=== PATIENT | female | born 1965 | race African-American/Black ===

== ENCOUNTER 2016-07-29 21:11 | Inpatient (IN) | payer MEDICARE, MEDICAID ==
[~2016-07-29] VITALS: Ht 160 cm; Wt 150.3 kg
[~2016-07-29 21:11] MED LIST: ALLO100T PO; ATOR10TA PO; Aspirin PO; BUDE10.2 IH; CETI10TA22 PO; Doxycycline Hyclate PO; FLUT1DIS3 INH; INSU100C4 SQ; INSU100I13 SQ; LOSA50TA6 PO; METO25TA9 PO; METO5TAB4 PO; NIFE30TA7 PO; PANT40TA3 PO; PROAIR HFA8.5 GM IH
[2016-07-29 21:55] LABS: CALCIUM 8.8 mg/dL (8.5-10.1); CREATININE 4.2 mg/dL (0.6-1.0); GFR 13.4
[2016-07-29 21:57] LABS: BASO % 1 % (0-3); EOS % 3 % (0-3); HEMATOCRIT 26.7 % (36.0-47.0); HEMOGLOBIN 8.5 g/dL (12.0-15.5); LYMPH # 0.6 x10^3/uL (1.0-4.8); LYMPH % 10 % (24-48); MEAN CORPUSCULAR HEMOGLOBIN 28 pg (25-35); MEAN CORPUSCULAR HGB CONC 32 g/dL (31-37); MEAN CORPUSCULAR VOLUME 88 fL (79-100); MONO % 7 % (0-9); NEUT % 79 % (31-73); PLATELET COUNT 258 x10^3/uL (140-400); RED BLOOD COUNT 3.05 x10^6/uL (3.50-5.40); RED CELL DISTRIBUTION WIDTH 20.5 % (11.5-14.5); WHITE BLOOD COUNT 5.8 x10^3/uL (4.0-11.0)
[2016-07-29 21:59] LABS: POTASSIUM ISTAT 3.9 mmol/L (3.5-5.0)
--- NOTE | 2016-07-29 21:59 | ED.ADGEN ---
Past Medical History Past Medical History: Arthritis, Asthma, CHF, COPD, Diabetes-Type II, GERD, Hypertension, Renal Disease, Renal Failure Additional Past Medical Histor: obesity Past Surgical History: , Knee Replacement, Other Additional Past Surgical Histo: (R) ARM SHUNT, (R) KNEE RPL, EYE Alcohol Use: None Drug Use: None Adult General Chief Complaint Chief Complaint: HEADACHE HPI HPI Patient is a 51 year old woman, history of end-stage renal disease on hemodialysis, who has missed her last 2 dialysis sessions, CHF, hypertension, hyperlipidemia, morbid obesity, who presents to the emergency department with complaint of headache, shortness of breath, and swelling. Patient states that she did not have a ride to get the dialysis on today, did her last full dialysis session was last , 6 days ago. She states that she is having a headache located throughout her head, which is throbbing in nature, denies any vision changes, any weakness emesis or tingling, no chest pain, complaining of shortness of breath and dyspnea with exertion, she does wear 3 L of oxygen at baseline. Swelling is bilateral in her legs, consistent with previous episodes of fluid overload, non-productive cough. No recent travel or surgery, history of DVT or PE, patient states she's been compliant all other medications. 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 Review of Systems Review of Systems Constitutional: Denies fever or chills. [] Eyes: Denies change in visual acuity. [] HENT: Denies nasal congestion or sore throat. [] Respiratory: Cough, dyspnea on exertion. [] Cardiovascular: Denies chest pain, complaining of edema GI: Denies abdominal pain, nausea, vomiting, bloody stools or diarrhea. [] : Denies dysuria. [] Musculoskeletal: Denies back pain or joint pain. [] Integument: Denies rash. [] Neurologic: Denies focal weakness or sensory changes. Complaining of throbbing headache. Endocrine: Denies polyuria or polydipsia. [] Lymphatic: Denies swollen glands. [] Psychiatric: Denies depression or anxiety. [] Allergies Allergies Allergies Coded Allergies Type Severity Reaction Last Updated Verified Penicillins Allergy Intermediate 05/16/15 Yes Iodinated Contrast Media - Oral and Adverse Reaction Intermediate Nausea and Vomiting 05/12/15 Yes prednisone Adverse Reaction Intermediate "Tastes Bad" 05/12/15 Yes Physical Exam Physical Exam Constitutional: Well developed, well nourished, no acute distress, non-toxic appearance. [] HENT: Normocephalic, atraumatic, bilateral external ears normal, oropharynx moist, no oral exudates, nose normal. [] Eyes: PERRLA, EOMI, conjunctiva normal, no discharge. [] Neck: Normal range of motion, no tenderness, supple, no stridor. [] Cardiovascular:Heart rate regular rhythm, no murmur [] Lungs & Thorax: Bilateral breath sounds clear to auscultation [] Abdomen: Bowel sounds normal, soft, no tenderness, no masses, no pulsatile masses. [] Skin: Warm, dry, no erythema, no rash. [] Back: No tenderness, no CVA tenderness. [] Extremities: No tenderness, no cyanosis, no clubbing, ROM intact, no edema. [] Neurologic: Alert and oriented X 3, normal motor function, normal sensory function, no focal deficits noted. [] Psychologic: Affect normal, judgement normal, mood normal. [] Current Patient Data Vital Signs Vital Signs Date Time Temp Pulse Resp B/P Pulse Ox O2 Delivery O2 Flow Rate FiO2 07/29/16 21:24 97.8 85 20 190/91 98 Nasal Cannula 3 97.8 Lab Values Laboratory Tests Test 07/29/16 21:30 07/29/16 21:43 White Blood Count 5.8x10^3/uL (4.0-11.0) Red Blood Count 3.05x10^6/uL (3.50-5.40) L Hemoglobin 8.5g/dL (12.0-15.5) L Hematocrit 26.7% (36.0-47.0) L Mean Corpuscular Volume 88fL (79-100) Mean Corpuscular Hemoglobin 28pg (25-35) Mean Corpuscular Hemoglobin Concent 32g/dL (31-37) Red Cell Distribution Width 20.5% (11.5-14.5) H Platelet Count 258x10^3/uL (140-400) Neutrophils (%) (Auto) 79% (31-73) H Lymphocytes (%) (Auto) 10% (24-48) L Monocytes (%) (Auto) 7% (0-9) Eosinophils (%) (Auto) 3% (0-3) Basophils (%) (Auto) 1% (0-3) Neutrophils # (Auto) 4.6x10^3uL (1.8-7.7) Lymphocytes # (Auto) 0.6x10^3/uL (1.0-4.8) L Monocytes # (Auto) 0.4x10^3/uL (0.0-1.1) Eosinophils # (Auto) 0.2x10^3/uL (0.0-0.7) Basophils # (Auto) 0.0x10^3/uL (0.0-0.2) Platelet Estimate Pending Sodium Level 138mmol/L (136-145) Potassium Level 4.0mmol/L (3.5-5.1) Chloride Level 101mmol/L (98-107) Carbon Dioxide Level 29mmol/L (21-32) Anion Gap 8 (6-14) 20mmol/L (6-14) H Blood Urea Nitrogen 44mg/dL (7-20) H Creatinine 4.2mg/dL (0.6-1.0) H Estimated GFR (Cockcroft-Gault) 13.4 BUN/Creatinine Ratio 10 (6-20) Glucose Level 128mg/dL (70-99) H 128mg/dL (70-99) H Calcium Level 8.8mg/dL (8.5-10.1) Total Bilirubin 1.3mg/dL (0.2-1.0) H Aspartate Amino Transferase (AST) 32U/L (15-37) Alanine Aminotransferase (ALT) 24U/L (14-59) Alkaline Phosphatase 371U/L (46-116) H Troponin I Quantitative 0.019ng/mL (0.000-0.055) Total Protein 9.7g/dL (6.4-8.2) H Albumin 2.8g/dL (3.4-5.0) L Albumin/Globulin Ratio 0.4 (1.0-1.7) L POC Hemoglobin 9.9g/dL (12-15) L POC Hematocrit 29% (36-40) L POC Sodium 141mmol/L (135-145) POC Potassium 3.9mmol/L (3.5-5.0) POC Chloride 100mmol/L (98-110) POC Total CO2 26mmol/L (23-32) POC Blood Urea Nitrogen 41mg/dL (8-26) H POC Creatinine 4.2mg/dL (0.5-1.4) H POC Ionized Calcium (Trista) 1.08mmol/L (1.13-1.32) L Laboratory Tests 07/29/16 21:30 Laboratory Tests 07/29/16 21:30 07/29/16 21:43 EKG EKG EC: Sinus rhythm, heart rate 86 beat/minute, upright axis, QTC of 458, TN of 262, QRS is 68, mild baseline artifact noted, with low limb lead voltage, no ST elevations or depressions, abnormal ECG, does not meet STEMI criteria. As interpreted by me. [] Radiology/Procedures Radiology/Procedures [] [facility] [address] [place] [address] IMAGING REPORT Signed PATIENT: RODRIGO FONSECA ACCOUNT: [id number] : 1965 LOCATION: [address] [place] [address] AGE: 51 SEX: F EXAM STATUS: ADM IN ORD. PHYSICIAN: DEXTER BABB DO REASON: RAM/HTN/Missed HD PROCEDURE: HEAD WO CONTRAST PROCEDURE CT scan of the head without contrast 07/29/2016 HISTORY Severe headache since earlier today. TECHNIQUE Unenhanced contiguous, 5 millimeter axial sections were obtained through the head. One or more of the following individualized dose reduction techniques were utilized for this study: 1. Automated exposure control. 2. Adjustment of the mA and/or kV according to patient size. 3. Use of iterative reconstruction technique. FINDINGS Comparison study is dated 03/03/2015. There is generalized parenchymal atrophy. No acute parenchymal abnormality is seen. No extra-axial fluid collection is noted. No skull fracture is seen. IMPRESSION No acute intracranial abnormality is seen. Electronically signed by: Zaheer Post MD (Jul 29, 2016 23:13:15) DICTATED and SIGNED BY: ZAHEER POST MD DATE: 07/29/16 3071 CC: DEXTER BABB DO; YANA BURT MD ~ Chest x-ray: One view: Cardiac silhouette is enlarged, patient with cephalization noted, no bony or soft tissue normalities identified, no pneumothorax, no effusions or infiltrates. As interpreted by me. Course & Med Decision Making Course & Med Decision Making Pertinent Labs and Imaging studies reviewed. (See chart for details) Patient's examination is consistent with congestive heart failure, oxygen saturation is the mid 90s on 2-1/2 L of nasal cannula oxygen, patient does get dyspneic with activity, but is comfortable at rest. Due to complaints of headache, CT of the head obtained to rule out any occult intracranial normality , as patient is higher risk with her history of dialysis. CT of the head is unremarkable, chest x-ray reveals mild cephalization, cardiomegaly, laboratory studies reveal a creatinine of 4.2, with a BU and of 44, electrolytes otherwise are within normal limits, all above discussed with Dr. Rico of nephrology, no indication for emergent dialysis tonight, however based on patient's 6 days without dialysis, and evidence of significant fluid overload, with dyspnea on exertion, recommends patient will be admitted to the hospital for dialysis performed in the morning, with monitoring overnight. Findings as above discussed with Dr. Pritchard of internal medicine, as a full admission to the medical telemetry floor, bridge orders entered with labs for the morning, when necessary Tylenol and fentanyl, respiratory therapy treatments, we'll continue oxygen therapy, and cardiac monitoring as stated. Repeat blood pressures were low bowel, order obtained from Dr. Pritchard for labetalol to be administered when necessary. Consultation placed for Dr. Arora. Patient remained stable in the ED, more comfortable after receiving Tylenol for her headache, transported to the floor without issue. Dragon Disclaimer Dragon Disclaimer This electronic medical record was generated, in whole or in part, using a voice recognition dictation system. Departure Impression: Primary Impression: CHF (congestive heart failure) Additional Impressions: Shortness of breath HTN (hypertension) End stage renal disease Medical non-compliance Disposition: ADMITTED INPATIENT Admitting Physician: Ivory Pritchard Condition: IMPROVED Problem Qualifiers Primary Impression: CHF (congestive heart failure) Congestive heart failure type: unspecified congestive heart failure type Congestive heart failure chronicity: unspecified congestive heart failure chronicity Qualified Code: I50.9 - Heart failure, unspecified Additional Impressions: HTN (hypertension) Hypertension type: essential hypertension Qualified Code: I10 - Essential ( primary) hypertension DEXTER BABB DO Jul 29, 2016 21:59
[2016-07-29 22:07] LABS: ALBUMIN 2.8 g/dL (3.4-5.0); ALBUMIN/GLOBULIN RATIO 0.4 (1.0-1.7); TOTAL BILIRUBIN 1.3 mg/dL (0.2-1.0); TOTAL PROTEIN 9.7 g/dL (6.4-8.2)
[2016-07-29] MEDS ORDERED: FENTANYL PF 100 MCG/2 ML VIAL. IV PRN (22:15)
[2016-07-29] MEDS ORDERED: ACETAMINOPHEN 325 MG TABLET. PO PRN (22:30)
[2016-07-29] MEDS ORDERED: ACETAMINOPHEN 325 MG TABLET. PO ONE (22:30)
[2016-07-29] MEDS ORDERED: NITROGLYCERIN SUBLINGUAL 0.4 MG BOTTLE OF 25. SL PRN (22:30)
[2016-07-29] MEDS ORDERED: DEXTROSE 50% 25 GM / 50ML DISP.SYRIN. IV PRN (22:30)
--- NOTE | 2016-07-29 23:15 | RAD ---
PROCEDURE CT scan of the head without contrast 07/29/2016 HISTORY Severe headache since earlier today. TECHNIQUE Unenhanced contiguous, 5 millimeter axial sections were obtained through the head. One or more of the following individualized dose reduction techniques were utilized for this study: 1. Automated exposure control. 2. Adjustment of the mA and/or kV according to patient size. 3. Use of iterative reconstruction technique. FINDINGS Comparison study is dated 03/03/2015. There is generalized parenchymal atrophy. No acute parenchymal abnormality is seen. No extra-axial fluid collection is noted. No skull fracture is seen. IMPRESSION No acute intracranial abnormality is seen. Electronically signed by: Zaheer Post MD (Jul 29, 2016 23:13:15)
[2016-07-29] MEDS ORDERED: LABETALOL 20 MG/4 ML DISP.SYRIN. IVP PRN (23:45)
[2016-07-30] MEDS ORDERED: INSU100V8 SQ (01:16)
[2016-07-30] MEDS ORDERED: BUDE10.2 IH (01:16)
[2016-07-30] MEDS ORDERED: FOLI0.8T3 PO (01:16)
[2016-07-30] MEDS ORDERED: HYDR-2868 PO (01:16)
[2016-07-30] MEDS ORDERED: TRAM50TA PO (01:16)
[2016-07-30] MEDS ORDERED: TORS20TA2 PO (01:16)
[2016-07-30] MEDS ORDERED: METO-269 PO (01:16)
[2016-07-30] MEDS ORDERED: CHOL500016 PO (01:16)
[2016-07-30] MEDS ORDERED: TRAMADOL 50 MG TABLET. PO PRN ×2 (01:30→08:30)
--- NOTE | 2016-07-30 01:59 | ACF ---
Admission Forms Criteria HEART FAILURE: COMMON COMPLICATIONS Clinical Indications for Inpatient Care (Place 'X' for any and all applicable criteria): Ongoing inpatient care may be indicated for heart failure with ANY ONE of the following (1)(2)(3)(4)(5): [ ]I. Ongoing need for care for primary condition requiring frequent therapy adjustments because of changes in cardiac function (eg, drug dosage changes for drugs that are renally metabolized) [ ]II. New-onset heart failure [ ]III. Heart failure with decreased urine output not responsive to attempts to optimize volume status [ ]IV. Acute cardiac ischemia causing or associated with failure [X]V. Complications of heart failure, including ANY ONE of the following: [ ]a) Pericardial effusion [ ]b) Symptomatic pleural effusion [ ]c) O2 saturation <90% or PO2 < 60 mm Hg (8.0 kPa) on room air or require baseline supplemental O2 [ ]d) Tachypnea [X]e) Dyspnea [ ]f) Syncope [ ]g) Change in mental status [ ]h) Acute renal insufficiency that is severe (reduction of more than 50% in estimated glomerular filtration rate from baseline) or progressive reduction of more than 25% in estimated glomerular filtration rate from baseline, with creatinine continuing to rise) [ ]i) Hemodynamic instability [ ]j) Anasarca [ ]k) Clinically significant metabolic abnormalities due to heart failure (eg, new-onset metabolic acidosis) Extended stay beyond goal length of stay for primary condition may be needed until ALL of the following are present(1)(3): [ ]a) Stable and effective diuretic regimen established (or patient on stable dialysis regimen if in chronic renal failure) [ ]b) Breathing comfortably at rest [ ]c) Saturation of arterial oxygen greater than 90% or at acceptable baseline [ ]d) Pulmonary edema absent or improved [ ]e) Hemodynamic stability [ ]f) Volume status acceptable on oral medication [ ]g) Peripheral or sacral edema absent or improved [ ]h) Renal function stable and manageable at a lower level of care [ ]i) Complications (eg, pleural effusion) resolved or manageable at a lower level of care [ ]j) Patient or caregiver has received written discharge instructions or educational material addressing activity level, diet, discharge medications, follow-up appointment, weight monitoring, and what to do if symptoms worsen The original [facility] content created by [employer] has been revised. The portions of the content which have been revised are identified through the use of italic text or in bold, and [facility] has neither reviewed nor approved the modified material.All other unmodified content is copyright [facility]. Please see references footnoted in the original [facility] edition 2016 Admission Criteria Met?: Yes SANJEEV LOPEZ Jul 30, 2016 01:59
[2016-07-30 03:35] VITALS: BP 156/85
[2016-07-30 05:22] LABS: BASO % 1 % (0-3); EOS % 4 % (0-3); HEMATOCRIT 25.7 % (36.0-47.0); LYMPH # 0.6 x10^3/uL (1.0-4.8); LYMPH % 13 % (24-48); MEAN CORPUSCULAR HEMOGLOBIN 28 pg (25-35); MEAN CORPUSCULAR HGB CONC 31 g/dL (31-37); MEAN CORPUSCULAR VOLUME 89 fL (79-100); MONO % 7 % (0-9); NEUT % 75 % (31-73); PLATELET COUNT 233 x10^3/uL (140-400); RED CELL DISTRIBUTION WIDTH 20.4 % (11.5-14.5); WHITE BLOOD COUNT 4.6 x10^3/uL (4.0-11.0)
[2016-07-30 05:25] LABS: PLT ESTIMATE ADEQUATE (ADEQUATE)
[2016-07-30 05:26] LABS: ANISOCYTOSIS MOD
[2016-07-30 06:01] LABS: CALCIUM 8.6 mg/dL (8.5-10.1); CREATININE 4.2 mg/dL (0.6-1.0); GFR 13.4; POTASSIUM 3.9 mmol/L (3.5-5.1)
--- NOTE | 2016-07-30 06:33 | EKG ---
[facility] [address] [place] [address] Test Date: 2016-07-29 Test Time: 21:47:59 Pat Name: RODRIGO FONSECA Department: Room: 261 1 Gender: F Pca: : 1965 Requested By: DEXTER BABB Order Number: [id number] Reading MD: Jasson Owens Measurements Intervals [place] Rate: 86 P: 2 RI: 262 QRS: 46 QRSD: 68 T: 34 QT: 380 QTc: 458 Interpretive Statements SINUS RHYTHM PROLONGED RI INTERVAL LEFT ATRIAL ABNORMALITY Electronically Signed On 07-30-2016 14:55:53 TODDLER GUIDE by Jasson Owens
[2016-07-30 07:00] VITALS: BP 158/80
--- NOTE | 2016-07-30 07:39 | RAD ---
Indication: Shortness of breath. Time of exam 2146 hours. Correlation is made with prior chest from 05/14/2015. The heart is enlarged. There is central congestion but no overt failure. No effusion or pneumothorax is seen. Impression: Cardiomegaly and central congestion.
[2016-07-30] MEDS: INSULIN ASPART 300 UNITS/3 ML INSULN.PEN SQ SCH ×5 (08:00→17:00)
[2016-07-30] MEDS ORDERED: DIPHENHYDRAMINE HCL 25 MG CAPSULE PO PRN ×2 (08:30→08:45)
[2016-07-30] MEDS ORDERED: NON FORMULARY ITEM (Albuterol Sulfate (Proair Hfa Inhaler) 2 PUFF) IH SCH (08:30)
[2016-07-30] MEDS ORDERED: FUROSEMIDE 100 MG/10 ML VIAL IVP ONE (08:30)
[2016-07-30] MEDS ORDERED: ALBUTEROL SULFATE 2.5 MG/3 ML NEBU. NEB PRN (08:45)
[2016-07-30] MEDS ORDERED: NON FORMULARY ITEM (Budesonide/Formoterol Fumarate (Symbicort 160-4.5 Mcg Inhaler) 2 PUFF) IH SCH (09:00)
[2016-07-30] MEDS: BUDESONIDE 0.5 MG/2 ML NEBU NEB SCH ×2 (09:00→20:00)
[2016-07-30] MEDS: IPRATRPIUM/ALBUTEROL 0.5/2.5MG 3 ML NEBU. NEB SCH ×4 (09:02→20:00)
--- NOTE | 2016-07-30 09:16 | PDOC1 ---
History and Physical Date of Admission Date of Admission DATE: 07/30/16 TIME: 09:08 Identification/Chief Complaint Chief Complaint RAM, dyspnea Source Source: Chart review, Patient History of Present Illness History of Present Illness Ms. Desir, is a 51 year old woman, admitted for LE edema, new leg pain, RAM, accel htn. She usually goes to [facility], and she admitted to have missed her last 2 dialysis sessions, last HD 6 days ago. She is not concerned enough with my asking her History to stop playing "[place]" on her phone while we talked. She cannot remember her nephrologists name,. "Ari altman" she had severe RAM and dyspnea last night, and now reports that is improved, She complains that her Lasix dose was dropped to 40 BID recently and that is not enough, she asked me for more lasix, and to get HD Past Medical History Past Medical History history of end-stage renal disease on hemodialysis, CHF, hypertension, hyperlipidemia, morbid obesity, Cardiovascular: CHF, HTN, Hyperlipidemia Pulmonary: Asthma, COPD CENTRAL NERVOUS SYSTEM: Other GI: GERD Heme/Onc: Anemia NOS Hepatobiliary: No pertinent hx Psych: No pertinent hx Musculoskeletal: Other Rheumatologic: No pertinent hx Infectious disease: No pertinent hx Renal/: Acute renal failure, Chronic renal failure Endocrine: Diabetes, Hyperparathyroidism Past Surgical History Past Surgical History: Cataract Removal, , Total knee replacement, Other Family History Family History: Heart Disease, Hypertension Social History Smoke: No ALCOHOL: none Drugs: None Current Problem List Problem List Problems Medical Problems: (1) CHF (congestive heart failure) Status: Acute (2) End stage renal disease Status: Acute (3) HTN (hypertension) Status: Acute (4) Medical non-compliance Status: Acute (5) Shortness of breath Status: Acute Problems: Current Medications Current Medications Current Medications Fentanyl Citrate (Fentanyl 2ml Vial) 25 mcg PRN Q15MIN PRN IV PAIN GREATER THAN 3/10; Start 07/29/16 at 22:15; Stop 07/30/16 at 22:14 Acetaminophen (Tylenol) 650 mg 1X ONCE PO Last administered on 07/29/16t 22:50 ; Start 07/29/16 at 22:30; Stop 07/29/16 at 22:31; Status DC Acetaminophen (Tylenol) 650 mg PRN Q4HRS PRN PO FEVER; Start 07/29/16 at 22:30 ; Stop 07/30/16 at 22:29 Nitroglycerin (Nitrostat) 0.4 mg PRN Q5MIN PRN SL CHEST PAIN; Start 07/29/16 at 22:30; Stop 07/30/16 at 22:29 Albuterol/ Ipratropium (Duoneb) 3 ml RTQID NEB Last administered on 07/30/16 09:02; Start 07/30/16 at 08:00; Stop 07/31/16 at 07:59 Insulin Aspart (Novolog) 0-5 UNITS TIDWMEALS SQ ; Start 07/30/16 at 08:00 Dextrose 12.5 gm PRN Q15MIN PRN IV SEE COMMENTS; Start 07/29/16 at 22:30 Labetalol HCl (Normodyne) 10 mg PRN Q2HR PRN IVP HYPERTENSION, SEE COMMENTS Last administered on 07/29/16 23:44; Start 07/29/16 at 23:45 Tramadol HCl (Ultram) 50 mg PRN Q8HRS PRN PO PAIN Last administered on 01:26; Start 07/30/16 at 01:30 Allopurinol (Zyloprim) 100 mg DAILY PO ; Start 07/30/16 at 09:00 Folic Acid/ Multivitamins/Vit B12 (Nephro-Kajal) 1 tab DAILY PO ; Start 07/30/16 at 09:00 Hydralazine HCl (Apresoline) 25 mg BID PO ; Start 07/30/16 at 09:00 Metoprolol Succinate (Toprol Xl) 50 mg DAILY PO ; Start 07/30/16 at 09:00 Nifedipine (Procardia Xl) 30 mg DAILY PO ; Start 07/30/16 at 09:00 Pantoprazole Sodium (Protonix) 40 mg DAILYAC PO ; Start 07/30/16 at 11:30 Torsemide (Demadex) 20 mg DAILY PO ; Start 07/30/16 at 09:00 Tramadol HCl (Ultram) 50 mg PRN Q8HRS PRN PO PAIN; Start 07/30/16 at 08:30 Non-Formulary Medication 2 puff PRN Q4-6HRS IH ; Start 07/30/16 at 08:30; Stop 07/30/16 at 08:48; Status DC Non-Formulary Medication 2 puff BID IH ; Start 07/30/16 at 09:00; Stop 07/30/16 at 09:00; Status DC Insulin Aspart (Novolog) 12 units TIDAC SQ ; Start 07/30/16 at 11:30 Insulin Detemir (Levemir) 15 units QHS SQ ; Start 07/30/16 at 21:00 Furosemide (Lasix) 80 mg 1X ONCE IVP ; Start 07/30/16 at 08:30; Stop 07/30/16 at 08:35; Status DC Diphenhydramine HCl (Benadryl) 60 mg PRN Q6HRS PRN PO ITCHING; Start 07/30/16 at 08:30; Stop 07/30/16 at 08:48; Status DC Budesonide (Pulmicort) 0.5 mg RTBID NEB ; Start 07/30/16 at 09:00 Albuterol Sulfate (Ventolin Neb Soln) 2.5 mg Q6HRS NEB ; Start 07/30/16 at 12:00 Albuterol Sulfate (Ventolin Neb Soln) 2.5 mg PRN Q4HRS PRN NEB SHORTNESS OF BREATH; Start 07/30/16 at 08:45 Diphenhydramine HCl (Benadryl) 25 mg PRN Q6HRS PRN PO ITCHING; Start 07/30/16 at 08:45 Active Scripts Active Reported Lantus (Insulin Glargine,Hum.rec.anlog) 100 Unit/1 Ml Vial 15 Unit SQ QHS Vitamin D3 (Cholecalciferol (Vitamin D3)) 5,000 Unit Tablet 5,000 Unit PO Torsemide 20 Mg Tablet 1 Tab PO DAILY Hydralazine Hcl 25 Mg Tablet 1 Tab PO BID Tramadol Hcl 50 Mg Tablet 50 Mg PO PRN Q8HRS PRN Toprol Xl (Metoprolol Succinate) 50 Mg Tab.er.24h 50 Mg PO DAILY Symbicort 160-4.5 Mcg Inhaler (Budesonide/Formoterol Fumarate) 10.2 Gm Hfa.aer.ad 2 Puff IH BID Nephro-Kajal Tablet (Folic Acid/Vitamin B Comp W-C) 0.8 Mg Tablet 1 Tab PO DAILY Novolog (Insulin Aspart) 100 Unit/1 Ml Cartridge 12 Unit SQ TIDAC Proair Hfa Inhaler (Albuterol Sulfate) 8.5 Gm Hfa.aer.ad 2 Puff IH PRN Q4-6HRS Nifedical Xl (Nifedipine) 30 Mg Tab.er.24 30 Mg PO DAILY Allopurinol 100 Mg Tablet 100 Mg PO Protonix (Pantoprazole Sodium) 40 Mg Tablet.dr 40 Mg PO DAILY Allergies Allergies: Coded Allergies: Penicillins (Verified Allergy, Intermediate, 05/16/15) Iodinated Contrast Media - Oral and (Verified Adverse Reaction, Intermediate, Nausea and Vomiting, 05/12/15) prednisone (Verified Adverse Reaction, Intermediate, "Tastes Bad", 05/12/15 ) ROS General: YES: Appetite, Fatigue, Malaise, No: Chills, Night Sweats, Other PSYCHOLOGICAL ROS: YES: Irritablity, Sleep disturbances, No: Anxiety, Behavioral Disorder, Concentration difficultie, Decreased libido , Depression, Disorientation, Hallucinations, Hostility, Memory difficulties, Mood Swings, Obsessive thoughts, Other, Physical abuse, Sexual abuse, Suicidal ideation HEENT: YES: Heacaches, No: Epistaxis, Hearing change, Nasal congestion, Nasal discharge, Oral lesions, Other, Sinus pain, Sneezing, Snoring, Sore Throat, Tinnitus, Vertigo, Visual Changes, Vocal changes Respiratory: YES: Cough, SOB with excertion, Shortness of breath, No: Hemoptysis, Orthopnea, Other, Pleuritic Pain, Sputum Changes, Stridor, Tachypnea, Wheezing Cardiovascular: yes Edema Gastrointestinal: No Abdominal Pain, No Constipation, No Diarrhea, No Hematochezia, No Melena, No Nausea, No Other, No Vomiting Genitourinary: No , No , No , No , No , No , No , No Discharge, No Dysuria, No Flank Pain, No Frequency, No Hematuria, No Incontinence, No Other, No Pain, No Retention, No Urgency Musculoskeletal: Yes Joint Pain, Yes Joint Stiffness, No Gait Disturbance, No Joint Swelling, No Muscle Pain, No Muscular Weakness , No Other, No Pain In:, No Swelling In: Neurological: Yes Gait Disturbance, No Behavorial Changes, No Bowel/Bladder ControlChng, No Confusion, No Dizziness, No Headaches, No Impaired Coord/balance, No Memory Loss, No Numbness/ Tingling, No Other, No Seizures, No Speech Problems, No Tremors, No Visual Changes, No Weakness Skin: Yes Dry Skin, No Acne, No Eczema, No Hair Changes, No Lumps, No Mole Changes, No Mottling, No Nail Changes, No Other, No Pruritus, No Rash, No Skin Lesion Changes Physical Exam General: Alert, Oriented X3, No acute distress HEENT: EOMI Lungs: Clear to auscultation, Normal air movement Heart: S1S2, no murmurs Abdomen: Other (very obese) Extremities: No clubbing, No cyanosis, Other (2+ edema pretib, 3+ feet) Skin: No rashes Neuro: Normal tone, Other Psych/Mental Status: Mental status NL, Other (odd affect, not agreeable) Vitals Vitals Vital Signs Date Time Temp Pulse Resp B/P Pulse Ox O2 Delivery O2 Flow Rate FiO2 07/30/16 09:05 Nasal Cannula 3.0 07/30/16 07:00 97.1 87 18 158/80 98 97.1 Labs Labs Laboratory Tests Test 07/29/16 21:30 07/29/16 21:43 07/30/16 04:15 07/30/16 04:18 White Blood Count 5.8x10^3/uL (4.0-11.0) 4.6x10^3/uL (4.0-11.0) Red Blood Count 3.05x10^6/uL (3.50-5.40) 2.90x10^6/uL (3.50-5.40) Hemoglobin 8.5g/dL (12.0-15.5) 8.0g/dL (12.0-15.5) Hematocrit 26.7% (36.0-47.0) 25.7% (36.0-47.0) Mean Corpuscular Volume 88fL (79-100) 89fL (79-100) Mean Corpuscular Hemoglobin 28pg (25-35) 28pg (25-35) Mean Corpuscular Hemoglobin Concent 32g/dL (31-37) 31g/dL (31-37) Red Cell Distribution Width 20.5% (11.5-14.5) 20.4% (11.5-14.5) Platelet Count 258x10^3/uL (140-400) 233x10^3/uL (140-400) Neutrophils (%) (Auto) 79% (31-73) 75% (31-73) Lymphocytes (%) (Auto) 10% (24-48) 13% (24-48) Monocytes (%) (Auto) 7% (0-9) 7% (0-9) Eosinophils (%) (Auto) 3% (0-3) 4% (0-3) Basophils (%) (Auto) 1% (0-3) 1% (0-3) Neutrophils # (Auto) 4.6x10^3uL (1.8-7.7) 3.5x10^3uL (1.8-7.7) Lymphocytes # (Auto) 0.6x10^3/uL (1.0-4.8) 0.6x10^3/uL (1.0-4.8) Monocytes # (Auto) 0.4x10^3/uL (0.0-1.1) 0.3x10^3/uL (0.0-1.1) Eosinophils # (Auto) 0.2x10^3/uL (0.0-0.7) 0.2x10^3/uL (0.0-0.7) Basophils # (Auto) 0.0x10^3/uL (0.0-0.2) 0.0x10^3/uL (0.0-0.2) Platelet Estimate Adequate (ADEQUATE) Anisocytosis Mod Sodium Level 138mmol/L (136-145) 140mmol/L (136-145) Potassium Level 4.0mmol/L (3.5-5.1) 3.9mmol/L (3.5-5.1) Chloride Level 101mmol/L (98-107) 102mmol/L (98-107) Carbon Dioxide Level 29mmol/L (21-32) 28mmol/L (21-32) Anion Gap 8 (6-14) 20mmol/L (6-14) 10 (6-14) Blood Urea Nitrogen 44mg/dL (7-20) 44mg/dL (7-20) Creatinine 4.2mg/dL (0.6-1.0) 4.2mg/dL (0.6-1.0) Estimated GFR (Cockcroft-Gault) 13.4 13.4 BUN/Creatinine Ratio 10 (6-20) Glucose Level 128mg/dL (70-99) 128mg/dL (70-99) 148mg/dL (70-99) Calcium Level 8.8mg/dL (8.5-10.1) 8.6mg/dL (8.5-10.1) Total Bilirubin 1.3mg/dL (0.2-1.0) Aspartate Amino Transf (AST/SGOT) 32U/L (15-37) Alanine Aminotransferase (ALT/SGPT) 24U/L (14-59) Alkaline Phosphatase 371U/L (46-116) Troponin I Quantitative 0.019ng/mL (0.000-0.055) Total Protein 9.7g/dL (6.4-8.2) Albumin 2.8g/dL (3.4-5.0) Albumin/Globulin Ratio 0.4 (1.0-1.7) Bedside Hemoglobin 9.9g/dL (12-15) Bedside Hematocrit 29% (36-40) Bedside Sodium 141mmol/L (135-145) Bedside Potassium 3.9mmol/L (3.5-5.0) Bedside Chloride 100mmol/L (98-110) Bedside Total CO2 26mmol/L (23-32) Bedside Blood Urea Nitrogen 41mg/dL (8-26) Bedside Creatinine 4.2mg/dL (0.5-1.4) Bedside Ionized Calcium (Trista) 1.08mmol/L (1.13-1.32) Test 07/30/16 08:37 Glucose (Fingerstick) 164mg/dL (70-99) Laboratory Tests Test 07/29/16 21:30 07/29/16 21:43 07/30/16 04:15 07/30/16 04:18 White Blood Count 5.8x10^3/uL (4.0-11.0) 4.6x10^3/uL (4.0-11.0) Red Blood Count 3.05x10^6/uL (3.50-5.40) 2.90x10^6/uL (3.50-5.40) Hemoglobin 8.5g/dL (12.0-15.5) 8.0g/dL (12.0-15.5) Hematocrit 26.7% (36.0-47.0) 25.7% (36.0-47.0) Mean Corpuscular Volume 88fL (79-100) 89fL (79-100) Mean Corpuscular Hemoglobin 28pg (25-35) 28pg (25-35) Mean Corpuscular Hemoglobin Concent 32g/dL (31-37) 31g/dL (31-37) Red Cell Distribution Width 20.5% (11.5-14.5) 20.4% (11.5-14.5) Platelet Count 258x10^3/uL (140-400) 233x10^3/uL (140-400) Neutrophils (%) (Auto) 79% (31-73) 75% (31-73) Lymphocytes (%) (Auto) 10% (24-48) 13% (24-48) Monocytes (%) (Auto) 7% (0-9) 7% (0-9) Eosinophils (%) (Auto) 3% (0-3) 4% (0-3) Basophils (%) (Auto) 1% (0-3) 1% (0-3) Neutrophils # (Auto) 4.6x10^3uL (1.8-7.7) 3.5x10^3uL (1.8-7.7) Lymphocytes # (Auto) 0.6x10^3/uL (1.0-4.8) 0.6x10^3/uL (1.0-4.8) Monocytes # (Auto) 0.4x10^3/uL (0.0-1.1) 0.3x10^3/uL (0.0-1.1) Eosinophils # (Auto) 0.2x10^3/uL (0.0-0.7) 0.2x10^3/uL (0.0-0.7) Basophils # (Auto) 0.0x10^3/uL (0.0-0.2) 0.0x10^3/uL (0.0-0.2) Platelet Estimate Adequate (ADEQUATE) Anisocytosis Mod Sodium Level 138mmol/L (136-145) 140mmol/L (136-145) Potassium Level 4.0mmol/L (3.5-5.1) 3.9mmol/L (3.5-5.1) Chloride Level 101mmol/L (98-107) 102mmol/L (98-107) Carbon Dioxide Level 29mmol/L (21-32) 28mmol/L (21-32) Anion Gap 8 (6-14) 20mmol/L (6-14) 10 (6-14) Blood Urea Nitrogen 44mg/dL (7-20) 44mg/dL (7-20) Creatinine 4.2mg/dL (0.6-1.0) 4.2mg/dL (0.6-1.0) Estimated GFR (Cockcroft-Gault) 13.4 13.4 BUN/Creatinine Ratio 10 (6-20) Glucose Level 128mg/dL (70-99) 128mg/dL (70-99) 148mg/dL (70-99) Calcium Level 8.8mg/dL (8.5-10.1) 8.6mg/dL (8.5-10.1) Total Bilirubin 1.3mg/dL (0.2-1.0) Aspartate Amino Transf (AST/SGOT) 32U/L (15-37) Alanine Aminotransferase (ALT/SGPT) 24U/L (14-59) Alkaline Phosphatase 371U/L (46-116) Troponin I Quantitative 0.019ng/mL (0.000-0.055) Total Protein 9.7g/dL (6.4-8.2) Albumin 2.8g/dL (3.4-5.0) Albumin/Globulin Ratio 0.4 (1.0-1.7) Bedside Hemoglobin 9.9g/dL (12-15) Bedside Hematocrit 29% (36-40) Bedside Sodium 141mmol/L (135-145) Bedside Potassium 3.9mmol/L (3.5-5.0) Bedside Chloride 100mmol/L (98-110) Bedside Total CO2 26mmol/L (23-32) Bedside Blood Urea Nitrogen 41mg/dL (8-26) Bedside Creatinine 4.2mg/dL (0.5-1.4) Bedside Ionized Calcium (Trista) 1.08mmol/L (1.13-1.32) Test 07/30/16 08:37 Glucose (Fingerstick) 164mg/dL (70-99) VTE Prophylaxis Ordered VTE Prophylaxis Devices: Yes VTE Pharmacological Prophylaxi: No Assessment/Plan Assessment/Plan CHF, acute diastolic failure, fluid overload, missed HD ESRD on HD, right arm fistula, consult renal for HD, maybe today and tomorrow per discretion, morbid obesity noncompliance htn, poor control Dm2, insulin admitted SANJUANA AWAD MD Jul 30, 2016 09:16
--- NOTE | 2016-07-30 10:22 | PDOC2 ---
REECE KIRAN [facility] [employer] [facility] 07/30/16 1022: CARDIAC CONSULT DATE OF CONSULT Date of Consult DATE: 07/30/16 TIME: 10:12 REASON FOR CONSULT Reason for Consult: Long TX interval REFERRING PHYSICIAN Referring Physician: aTye SOURCE Source: Chart review, Patient HISTORY OF PRESENT ILLNESS HISTORY OF PRESENT ILLNESS This is a pleasant 51 yo female admitted for complains of increasing SOA. Reports that she missed 2 HD treatments due to transportations problem and has been admitted for CHF. Also she has been having increasing RAM citing her BP has been elevated. Denies any palpitations, dizziness, nor syncope. Denies any CP. Positive for PND, orthopanea and increasing peripheral edema. Denies any history of arrhythmias. She was AT [facility] on 05/2016 in which she had some cardiac workup including echocardiogram and she admitted there again due to missed HD and CHF. Consult is for first degree AV block which she does not have symptoms in relation to. No hypotensive episodes nor bradycardia episodes. PAST MEDICAL HISTORY Past Medical History Cardiovascular: CHF, HTN, Hyperlipidemia Pulmonary: Asthma CENTRAL NERVOUS SYSTEM: Other (No pertinent history) GI: GERD Heme/Onc: Anemia NOS Hepatobiliary: No pertinent hx Psych: No pertinent hx Musculoskeletal: Osteoarthritis, Other (Morbid obesity) Rheumatologic: No pertinent hx Infectious disease: No pertinent hx ENT: Other (retinopathy; cataract) Renal/: Chronic renal failure Endocrine: Diabetes (2) Dermatology: No pertinent hx PAST SURGICAL HISTORY Past Surgical History Cataract Removal, , Total knee replacement (right), Other (eye repair relating to retinopathy) FAMILY HISTORY Family History Heart Disease (mother) SOCIAL HISTORY Social History Smoke: No ALCOHOL: none Drugs: None Lives: with Family Domestic Violence: Neg CURRENT MEDICATIONS CURRENT MEDICATIONS Current Medications Medications (Trade) Dose Ordered Sig/Werner Route PRN Reason Start Time Stop Time Status Last Admin Dose Admin Acetaminophen (Tylenol) 650 mg 1X ONCE PO 07/29/16 22:30 07/29/16 22:31 DC 07/29/16 22:50 Albuterol/ Ipratropium (Duoneb) 3 ml RTQID NEB 07/30/16 08:00 07/31/16 07:59 07/30/16 09:02 Labetalol HCl (Normodyne) 10 mg PRN Q2HR PRN IVP HYPERTENSION, SEE COMMENTS 07/29/16 23:45 07/29/16 23:44 Tramadol HCl (Ultram) 50 mg PRN Q8HRS PRN PO PAIN 07/30/16 01:30 07/30/16 01:26 ALLERGIES ALLERGIES: Coded Allergies: Penicillins (Verified Allergy, Intermediate, 05/16/15) Iodinated Contrast Media - Oral and (Verified Adverse Reaction, Intermediate, Nausea and Vomiting, 05/12/15) prednisone (Verified Adverse Reaction, Intermediate, "Tastes Bad", 05/12/15 ) ROS Review of System 14 point ROS evaluated with pertinent positives noted per HPI PHYSICAL EXAM General: Alert, Oriented X3, Cooperative, mild distress HEENT: Atraumatic, Mucous membr. moist/pink Lungs: Other (diffuse crackles) Heart: Regular rate, Normal S1, Normal S2, Other (S4; distant heart sounds; 2/ 6 systolic murmur to LLS border) Extremities: No cyanosis, Other (3+ bilateral LE pitting edema) Skin: No breakdown, No significant lesion Neuro: Sensation intact Psych/Mental Status: Mental status NL, Mood NL MUSCULOSKELETAL: Osteoarthritic changes both hands VITALS VITALS Vital Signs Date Time Temp Pulse Resp B/P Pulse Ox O2 Delivery O2 Flow Rate FiO2 07/30/16 09:05 Nasal Cannula 3.0 07/30/16 07:00 97.1 87 18 158/80 98 97.1 LABS Lab: Laboratory Tests Test 07/29/16 21:30 07/29/16 21:43 07/30/16 04:15 07/30/16 04:18 White Blood Count 5.8x10^3/uL (4.0-11.0) 4.6x10^3/uL (4.0-11.0) Red Blood Count 3.05x10^6/uL (3.50-5.40) 2.90x10^6/uL (3.50-5.40) Hemoglobin 8.5g/dL (12.0-15.5) 8.0g/dL (12.0-15.5) Hematocrit 26.7% (36.0-47.0) 25.7% (36.0-47.0) Mean Corpuscular Volume 88fL (79-100) 89fL (79-100) Mean Corpuscular Hemoglobin 28pg (25-35) 28pg (25-35) Mean Corpuscular Hemoglobin Concent 32g/dL (31-37) 31g/dL (31-37) Red Cell Distribution Width 20.5% (11.5-14.5) 20.4% (11.5-14.5) Platelet Count 258x10^3/uL (140-400) 233x10^3/uL (140-400) Neutrophils (%) (Auto) 79% (31-73) 75% (31-73) Lymphocytes (%) (Auto) 10% (24-48) 13% (24-48) Monocytes (%) (Auto) 7% (0-9) 7% (0-9) Eosinophils (%) (Auto) 3% (0-3) 4% (0-3) Basophils (%) (Auto) 1% (0-3) 1% (0-3) Neutrophils # (Auto) 4.6x10^3uL (1.8-7.7) 3.5x10^3uL (1.8-7.7) Lymphocytes # (Auto) 0.6x10^3/uL (1.0-4.8) 0.6x10^3/uL (1.0-4.8) Monocytes # (Auto) 0.4x10^3/uL (0.0-1.1) 0.3x10^3/uL (0.0-1.1) Eosinophils # (Auto) 0.2x10^3/uL (0.0-0.7) 0.2x10^3/uL (0.0-0.7) Basophils # (Auto) 0.0x10^3/uL (0.0-0.2) 0.0x10^3/uL (0.0-0.2) Platelet Estimate Adequate (ADEQUATE) Anisocytosis Mod Sodium Level 138mmol/L (136-145) 140mmol/L (136-145) Potassium Level 4.0mmol/L (3.5-5.1) 3.9mmol/L (3.5-5.1) Chloride Level 101mmol/L (98-107) 102mmol/L (98-107) Carbon Dioxide Level 29mmol/L (21-32) 28mmol/L (21-32) Anion Gap 8 (6-14) 20mmol/L (6-14) 10 (6-14) Blood Urea Nitrogen 44mg/dL (7-20) 44mg/dL (7-20) Creatinine 4.2mg/dL (0.6-1.0) 4.2mg/dL (0.6-1.0) Estimated GFR (Cockcroft-Gault) 13.4 13.4 BUN/Creatinine Ratio 10 (6-20) Glucose Level 128mg/dL (70-99) 128mg/dL (70-99) 148mg/dL (70-99) Calcium Level 8.8mg/dL (8.5-10.1) 8.6mg/dL (8.5-10.1) Total Bilirubin 1.3mg/dL (0.2-1.0) Aspartate Amino Transf (AST/SGOT) 32U/L (15-37) Alanine Aminotransferase (ALT/SGPT) 24U/L (14-59) Alkaline Phosphatase 371U/L (46-116) Troponin I Quantitative 0.019ng/mL (0.000-0.055) Total Protein 9.7g/dL (6.4-8.2) Albumin 2.8g/dL (3.4-5.0) Albumin/Globulin Ratio 0.4 (1.0-1.7) Bedside Hemoglobin 9.9g/dL (12-15) Bedside Hematocrit 29% (36-40) Bedside Sodium 141mmol/L (135-145) Bedside Potassium 3.9mmol/L (3.5-5.0) Bedside Chloride 100mmol/L (98-110) Bedside Total CO2 26mmol/L (23-32) Bedside Blood Urea Nitrogen 41mg/dL (8-26) Bedside Creatinine 4.2mg/dL (0.5-1.4) Bedside Ionized Calcium (Trista) 1.08mmol/L (1.13-1.32) Test 07/30/16 08:37 Glucose (Fingerstick) 164mg/dL (70-99) ECHOCARDIOGRAM ECHOCARDIOGRAM <Conclusion> Technically difficult study. Normal LV systolic function. Grade 3 diastolic dysfunction. Overall hemodynamics suggestive of elevated filling pressures. Cannot rule out underlying restrictive or constrictive heart disease. DATE: 05/14/15 190 ASSESSMENT/PLAN ASSESSMENT/PLAN 1. Arrhythmia: EKG noted for SR with first degree AV block. No symptomatic changes in relation to this. Benign change, nothing further at this time. 2. Acute on chronic diastolic CHF: missed dialysis x2, fluid off loading per HD. Recent TTE at [facility] 05/2016, obtaining copy. Defer to PCP 3. Accelerated HTN: improving, continue current regimen 4. DM2 5. ESRD: hemodialysis per nephrology. 6. Anemia of chronic disease: Hgb 8.0 7. RAM: likely from HTN. CT head no acute changes, per PCP Problems: VENKATESH JACOBO MD 07/31/16 1106: CARDIAC CONSULT ALLERGIES ALLERGIES: Coded Allergies: Penicillins (Verified Allergy, Intermediate, 05/16/15) Iodinated Contrast Media - Oral and (Verified Adverse Reaction, Intermediate, Nausea and Vomiting, 05/12/15) prednisone (Verified Adverse Reaction, Intermediate, "Tastes Bad", 05/12/15 ) ASSESSMENT/PLAN ASSESSMENT/PLAN Patient seen and examined 07/30/16. Agree with [employer]'s assessment and plan. First- degree AV block on EKG benign. Telemetry did not show any significant arrhythmias. Continue fluid removal with hemodialysis per nephrology team for acute on chronic Diastolic Heart Failure. Blood pressure improved since admission. Continue current medical regimen. No further cardiac workup is indicated at this time. Thank you for consultation. Problems: REECE KIRAN APRN Jul 30, 2016 10:22 VENKATESH JACOBO MD Jul 31, 2016 11:06
--- NOTE | 2016-07-30 11:02 | PDOC2 ---
CONSULT Date of Consult Date of Consult DATE: 07/30/16 TIME: 10:57 Reason for Consult Reason for Consult: ESRD Referring Physician Referring Physician: JONATHON Identification/Chief Complaint Chief Complaint SOB AND RAM Source Source: Chart review, Patient History of Present Illness Reason for Visit: THIS IS A 51 YR OLD ADMITTED WITH SOB AND RAM. SHE HAS ESRD AND HAS NOT BEEN GOING TO HER HD TXS FOR ABOUT A WEEK. PER PT THIS IS BECAUSE OF NO TRANSPORTATION. LABS ARE C/W ESRD AND ANEMIA. CXRAY IS C/W CENTRAL VASCULAR CONGESTION. HER ESRD IS DUE TO DM AND HTN Past Medical History Cardiovascular: CHF, HTN, Hyperlipidemia Pulmonary: Asthma, COPD CENTRAL NERVOUS SYSTEM: Other GI: GERD Heme/Onc: Anemia NOS Hepatobiliary: No pertinent hx Psych: No pertinent hx Musculoskeletal: Other Rheumatologic: No pertinent hx Infectious disease: No pertinent hx Renal/: Acute renal failure, Chronic renal failure Endocrine: Diabetes, Hyperparathyroidism Past Surgical History Past Surgical History: Cataract Removal, , Total knee replacement, Other Family History Family History: Heart Disease, Hypertension Social History No ALCOHOL: none Drugs: None Lives: with Family Domestic Violence: Neg Current Problem List Problem List Problems Medical Problems: (1) CHF (congestive heart failure) Status: Acute (2) End stage renal disease Status: Acute (3) HTN (hypertension) Status: Acute (4) Medical non-compliance Status: Acute (5) Shortness of breath Status: Acute Current Medications Current Medications Current Medications Fentanyl Citrate (Fentanyl 2ml Vial) 25 mcg PRN Q15MIN PRN IV PAIN GREATER THAN 3/10; Start 07/29/16 at 22:15; Stop 07/30/16 at 22:14 Acetaminophen (Tylenol) 650 mg 1X ONCE PO Last administered on 07/29/16t 22:50 ; Start 07/29/16 at 22:30; Stop 07/29/16 at 22:31; Status DC Acetaminophen (Tylenol) 650 mg PRN Q4HRS PRN PO FEVER; Start 07/29/16 at 22:30 ; Stop 07/30/16 at 22:29 Nitroglycerin (Nitrostat) 0.4 mg PRN Q5MIN PRN SL CHEST PAIN; Start 07/29/16 at 22:30; Stop 07/30/16 at 22:29 Albuterol/ Ipratropium (Duoneb) 3 ml RTQID NEB Last administered on 07/30/16 09:02; Start 07/30/16 at 08:00; Stop 07/31/16 at 07:59 Insulin Aspart (Novolog) 0-5 UNITS TIDWMEALS SQ ; Start 07/30/16 at 08:00 Dextrose 12.5 gm PRN Q15MIN PRN IV SEE COMMENTS; Start 07/29/16 at 22:30 Labetalol HCl (Normodyne) 10 mg PRN Q2HR PRN IVP HYPERTENSION, SEE COMMENTS Last administered on 07/29/16 23:44; Start 07/29/16 at 23:45 Tramadol HCl (Ultram) 50 mg PRN Q8HRS PRN PO PAIN Last administered on 01:26; Start 07/30/16 at 01:30 Allopurinol (Zyloprim) 100 mg DAILY PO ; Start 07/30/16 at 09:00 Folic Acid/ Multivitamins/Vit B12 (Nephro-Kajal) 1 tab DAILY PO ; Start 07/30/16 at 09:00 Hydralazine HCl (Apresoline) 25 mg BID PO ; Start 07/30/16 at 09:00 Metoprolol Succinate (Toprol Xl) 50 mg DAILY PO ; Start 07/30/16 at 09:00 Nifedipine (Procardia Xl) 30 mg DAILY PO ; Start 07/30/16 at 09:00 Pantoprazole Sodium (Protonix) 40 mg DAILYAC PO ; Start 07/30/16 at 11:30 Torsemide (Demadex) 20 mg DAILY PO ; Start 07/30/16 at 09:00 Tramadol HCl (Ultram) 50 mg PRN Q8HRS PRN PO PAIN; Start 07/30/16 at 08:30 Non-Formulary Medication 2 puff PRN Q4-6HRS IH ; Start 07/30/16 at 08:30; Stop 07/30/16 at 08:48; Status DC Non-Formulary Medication 2 puff BID IH ; Start 07/30/16 at 09:00; Stop 07/30/16 at 09:00; Status DC Insulin Aspart (Novolog) 12 units TIDAC SQ ; Start 07/30/16 at 11:30 Insulin Detemir (Levemir) 15 units QHS SQ ; Start 07/30/16 at 21:00 Furosemide (Lasix) 80 mg 1X ONCE IVP ; Start 07/30/16 at 08:30; Stop 07/30/16 at 08:35; Status DC Diphenhydramine HCl (Benadryl) 60 mg PRN Q6HRS PRN PO ITCHING; Start 07/30/16 at 08:30; Stop 07/30/16 at 08:48; Status DC Budesonide (Pulmicort) 0.5 mg RTBID NEB ; Start 07/30/16 at 09:00 Albuterol Sulfate (Ventolin Neb Soln) 2.5 mg Q6HRS NEB ; Start 07/30/16 at 12:00 Albuterol Sulfate (Ventolin Neb Soln) 2.5 mg PRN Q4HRS PRN NEB SHORTNESS OF BREATH; Start 07/30/16 at 08:45 Diphenhydramine HCl (Benadryl) 25 mg PRN Q6HRS PRN PO ITCHING; Start 07/30/16 at 08:45 Active Scripts Active Reported Lantus (Insulin Glargine,Hum.rec.anlog) 100 Unit/1 Ml Vial 15 Unit SQ QHS Vitamin D3 (Cholecalciferol (Vitamin D3)) 5,000 Unit Tablet 5,000 Unit PO Torsemide 20 Mg Tablet 1 Tab PO DAILY Hydralazine Hcl 25 Mg Tablet 1 Tab PO BID Tramadol Hcl 50 Mg Tablet 50 Mg PO PRN Q8HRS PRN Toprol Xl (Metoprolol Succinate) 50 Mg Tab.er.24h 50 Mg PO DAILY Symbicort 160-4.5 Mcg Inhaler (Budesonide/Formoterol Fumarate) 10.2 Gm Hfa.aer.ad 2 Puff IH BID Nephro-Kajal Tablet (Folic Acid/Vitamin B Comp W-C) 0.8 Mg Tablet 1 Tab PO DAILY Novolog (Insulin Aspart) 100 Unit/1 Ml Cartridge 12 Unit SQ TIDAC Proair Hfa Inhaler (Albuterol Sulfate) 8.5 Gm Hfa.aer.ad 2 Puff IH PRN Q4-6HRS Nifedical Xl (Nifedipine) 30 Mg Tab.er.24 30 Mg PO DAILY Allopurinol 100 Mg Tablet 100 Mg PO Protonix (Pantoprazole Sodium) 40 Mg Tablet.dr 40 Mg PO DAILY Allergies Allergies: Coded Allergies: Penicillins (Verified Allergy, Intermediate, 05/16/15) Iodinated Contrast Media - Oral and (Verified Adverse Reaction, Intermediate, Nausea and Vomiting, 05/12/15) prednisone (Verified Adverse Reaction, Intermediate, "Tastes Bad", 05/12/15 ) ROS General: YES: Appetite, Fatigue, Malaise PSYCHOLOGICAL ROS: YES: Anxiety Eyes: Yes Decreased vision HEENT: YES: Heacaches Respiratory: YES: Orthopnea, Shortness of breath Cardiovascular: yes Edema, yes Orthopnea Gastrointestinal: Yes Constipation Genitourinary: YES Other (ANURIA) Musculoskeletal: Yes Muscular Weakness Neurological: Yes Weakness Skin: Yes Dry Skin Physical Exam General: Alert, Oriented X3, Cooperative, No acute distress HEENT: Atraumatic, PERRLA Lungs: Other (BASILAR POOR AIR FLOW) Heart: Regular rate, Normal S1, Normal S2 Abdomen: Normal bowel sounds, Soft, No tenderness Extremities: No clubbing Skin: No breakdown Neuro: Normal speech, Cranial nerves 3-12 NL Psych/Mental Status: Mental status NL, Mood NL MUSCULOSKELETAL: No deformity, No swelling Vitals VITALS Vital Signs Date Time Temp Pulse Resp B/P Pulse Ox O2 Delivery O2 Flow Rate FiO2 07/30/16 09:05 Nasal Cannula 3.0 07/30/16 07:00 97.1 87 18 158/80 98 97.1 Labs Labs Laboratory Tests Test 07/29/16 21:30 07/29/16 21:43 07/30/16 04:15 07/30/16 04:18 White Blood Count 5.8x10^3/uL (4.0-11.0) 4.6x10^3/uL (4.0-11.0) Red Blood Count 3.05x10^6/uL (3.50-5.40) 2.90x10^6/uL (3.50-5.40) Hemoglobin 8.5g/dL (12.0-15.5) 8.0g/dL (12.0-15.5) Hematocrit 26.7% (36.0-47.0) 25.7% (36.0-47.0) Mean Corpuscular Volume 88fL (79-100) 89fL (79-100) Mean Corpuscular Hemoglobin 28pg (25-35) 28pg (25-35) Mean Corpuscular Hemoglobin Concent 32g/dL (31-37) 31g/dL (31-37) Red Cell Distribution Width 20.5% (11.5-14.5) 20.4% (11.5-14.5) Platelet Count 258x10^3/uL (140-400) 233x10^3/uL (140-400) Neutrophils (%) (Auto) 79% (31-73) 75% (31-73) Lymphocytes (%) (Auto) 10% (24-48) 13% (24-48) Monocytes (%) (Auto) 7% (0-9) 7% (0-9) Eosinophils (%) (Auto) 3% (0-3) 4% (0-3) Basophils (%) (Auto) 1% (0-3) 1% (0-3) Neutrophils # (Auto) 4.6x10^3uL (1.8-7.7) 3.5x10^3uL (1.8-7.7) Lymphocytes # (Auto) 0.6x10^3/uL (1.0-4.8) 0.6x10^3/uL (1.0-4.8) Monocytes # (Auto) 0.4x10^3/uL (0.0-1.1) 0.3x10^3/uL (0.0-1.1) Eosinophils # (Auto) 0.2x10^3/uL (0.0-0.7) 0.2x10^3/uL (0.0-0.7) Basophils # (Auto) 0.0x10^3/uL (0.0-0.2) 0.0x10^3/uL (0.0-0.2) Platelet Estimate Adequate (ADEQUATE) Anisocytosis Mod Sodium Level 138mmol/L (136-145) 140mmol/L (136-145) Potassium Level 4.0mmol/L (3.5-5.1) 3.9mmol/L (3.5-5.1) Chloride Level 101mmol/L (98-107) 102mmol/L (98-107) Carbon Dioxide Level 29mmol/L (21-32) 28mmol/L (21-32) Anion Gap 8 (6-14) 20mmol/L (6-14) 10 (6-14) Blood Urea Nitrogen 44mg/dL (7-20) 44mg/dL (7-20) Creatinine 4.2mg/dL (0.6-1.0) 4.2mg/dL (0.6-1.0) Estimated GFR (Cockcroft-Gault) 13.4 13.4 BUN/Creatinine Ratio 10 (6-20) Glucose Level 128mg/dL (70-99) 128mg/dL (70-99) 148mg/dL (70-99) Calcium Level 8.8mg/dL (8.5-10.1) 8.6mg/dL (8.5-10.1) Total Bilirubin 1.3mg/dL (0.2-1.0) Aspartate Amino Transf (AST/SGOT) 32U/L (15-37) Alanine Aminotransferase (ALT/SGPT) 24U/L (14-59) Alkaline Phosphatase 371U/L (46-116) Troponin I Quantitative 0.019ng/mL (0.000-0.055) Total Protein 9.7g/dL (6.4-8.2) Albumin 2.8g/dL (3.4-5.0) Albumin/Globulin Ratio 0.4 (1.0-1.7) Bedside Hemoglobin 9.9g/dL (12-15) Bedside Hematocrit 29% (36-40) Bedside Sodium 141mmol/L (135-145) Bedside Potassium 3.9mmol/L (3.5-5.0) Bedside Chloride 100mmol/L (98-110) Bedside Total CO2 26mmol/L (23-32) Bedside Blood Urea Nitrogen 41mg/dL (8-26) Bedside Creatinine 4.2mg/dL (0.5-1.4) Bedside Ionized Calcium (Trista) 1.08mmol/L (1.13-1.32) Test 07/30/16 08:37 Glucose (Fingerstick) 164mg/dL (70-99) Laboratory Tests Test 07/29/16 21:30 07/29/16 21:43 07/30/16 04:15 07/30/16 04:18 White Blood Count 5.8x10^3/uL (4.0-11.0) 4.6x10^3/uL (4.0-11.0) Red Blood Count 3.05x10^6/uL (3.50-5.40) 2.90x10^6/uL (3.50-5.40) Hemoglobin 8.5g/dL (12.0-15.5) 8.0g/dL (12.0-15.5) Hematocrit 26.7% (36.0-47.0) 25.7% (36.0-47.0) Mean Corpuscular Volume 88fL (79-100) 89fL (79-100) Mean Corpuscular Hemoglobin 28pg (25-35) 28pg (25-35) Mean Corpuscular Hemoglobin Concent 32g/dL (31-37) 31g/dL (31-37) Red Cell Distribution Width 20.5% (11.5-14.5) 20.4% (11.5-14.5) Platelet Count 258x10^3/uL (140-400) 233x10^3/uL (140-400) Neutrophils (%) (Auto) 79% (31-73) 75% (31-73) Lymphocytes (%) (Auto) 10% (24-48) 13% (24-48) Monocytes (%) (Auto) 7% (0-9) 7% (0-9) Eosinophils (%) (Auto) 3% (0-3) 4% (0-3) Basophils (%) (Auto) 1% (0-3) 1% (0-3) Neutrophils # (Auto) 4.6x10^3uL (1.8-7.7) 3.5x10^3uL (1.8-7.7) Lymphocytes # (Auto) 0.6x10^3/uL (1.0-4.8) 0.6x10^3/uL (1.0-4.8) Monocytes # (Auto) 0.4x10^3/uL (0.0-1.1) 0.3x10^3/uL (0.0-1.1) Eosinophils # (Auto) 0.2x10^3/uL (0.0-0.7) 0.2x10^3/uL (0.0-0.7) Basophils # (Auto) 0.0x10^3/uL (0.0-0.2) 0.0x10^3/uL (0.0-0.2) Platelet Estimate Adequate (ADEQUATE) Anisocytosis Mod Sodium Level 138mmol/L (136-145) 140mmol/L (136-145) Potassium Level 4.0mmol/L (3.5-5.1) 3.9mmol/L (3.5-5.1) Chloride Level 101mmol/L (98-107) 102mmol/L (98-107) Carbon Dioxide Level 29mmol/L (21-32) 28mmol/L (21-32) Anion Gap 8 (6-14) 20mmol/L (6-14) 10 (6-14) Blood Urea Nitrogen 44mg/dL (7-20) 44mg/dL (7-20) Creatinine 4.2mg/dL (0.6-1.0) 4.2mg/dL (0.6-1.0) Estimated GFR (Cockcroft-Gault) 13.4 13.4 BUN/Creatinine Ratio 10 (6-20) Glucose Level 128mg/dL (70-99) 128mg/dL (70-99) 148mg/dL (70-99) Calcium Level 8.8mg/dL (8.5-10.1) 8.6mg/dL (8.5-10.1) Total Bilirubin 1.3mg/dL (0.2-1.0) Aspartate Amino Transf (AST/SGOT) 32U/L (15-37) Alanine Aminotransferase (ALT/SGPT) 24U/L (14-59) Alkaline Phosphatase 371U/L (46-116) Troponin I Quantitative 0.019ng/mL (0.000-0.055) Total Protein 9.7g/dL (6.4-8.2) Albumin 2.8g/dL (3.4-5.0) Albumin/Globulin Ratio 0.4 (1.0-1.7) Bedside Hemoglobin 9.9g/dL (12-15) Bedside Hematocrit 29% (36-40) Bedside Sodium 141mmol/L (135-145) Bedside Potassium 3.9mmol/L (3.5-5.0) Bedside Chloride 100mmol/L (98-110) Bedside Total CO2 26mmol/L (23-32) Bedside Blood Urea Nitrogen 41mg/dL (8-26) Bedside Creatinine 4.2mg/dL (0.5-1.4) Bedside Ionized Calcium (Trista) 1.08mmol/L (1.13-1.32) Test 07/30/16 08:37 Glucose (Fingerstick) 164mg/dL (70-99) Assessment/Plan Assessment/Plan IMP CHF-ACUTE DIASTOLIC MOST LIKELY HYPERVOLEMIA NON COMPLIANCE WITH HD ANEMIA ESRD DM II HTN PLAN ENC COMPLIANCE ARANESP HD TODAY UF TO [facility] EVAL AND TX TARYN COLBY MD Jul 30, 2016 11:02
[2016-07-30] MEDS: ALBUTEROL SULFATE 2.5 MG/3 ML NEBU. NEB SCH ×2 (12:00→18:00)
[2016-07-30] MEDS ORDERED: LIDOCAINE 1% PF 2 ML VIAL. ONE ×2 (12:00→12:19)
[2016-07-30] MEDS ORDERED: IV NORMAL SALINE 1000ML BAG 1,000 ML IV PRN (15:43)
[2016-07-30] MEDS ORDERED: DIALYSIS PATIENT. MC PRN ×2 (15:45)
[2016-07-30 19:37] VITALS: BP 150/86
[2016-07-30] MEDS: FOLIC/VIT B COMP W-C (RENAL) TABLET. PO SCH (20:54)
[2016-07-30] MEDS: METOPROLOL SUCC 24HR ER 50 MG TAB.ER.24H. PO SCH (20:55)
[2016-07-30] MEDS: TORSEMIDE 20 MG TABLET. PO SCH (20:55)
[2016-07-30] MEDS: ALLOPURINOL 100 MG TABLET. PO SCH (20:55)
[2016-07-30] MEDS: PANTOPRAZOLE 40 MG TABLET. PO SCH (20:55)
[2016-07-30] MEDS: NIFEDIPINE ER 30 MG TAB.ER.24H PO SCH (20:55)
[2016-07-30] MEDS: HYDRALAZINE 25 MG TABLET PO SCH ×2 (20:56→21:00)
[2016-07-30] MEDS ORDERED: INSULIN DETEMIR 300 UNITS/3 ML INSULN.PEN. SQ SCH (21:00)
[2016-07-30] MEDS ORDERED: DARBEPOETIN ALFA 60 MCG/0.3 ML DISP.SYRIN. SQ SCH (21:00)
[2016-07-30 23:11] VITALS: BP 154/90
[2016-07-31 05:42] LABS: CALCIUM 8.3 mg/dL (8.5-10.1); CREATININE 3.1 mg/dL (0.6-1.0); GFR 19.1; POTASSIUM 4.2 mmol/L (3.5-5.1)
[2016-07-31] MEDS: ALBUTEROL SULFATE 2.5 MG/3 ML NEBU. NEB SCH ×5 (06:00→19:45)
[2016-07-31 07:00] VITALS: BP 168/88
[2016-07-31] MEDS: IPRATRPIUM/ALBUTEROL 0.5/2.5MG 3 ML NEBU. NEB SCH (07:16)
[2016-07-31] MEDS: BUDESONIDE 0.5 MG/2 ML NEBU NEB SCH ×2 (07:16→19:41)
[2016-07-31] MEDS: INSULIN ASPART 300 UNITS/3 ML INSULN.PEN SQ SCH ×6 (07:30→16:38)
[2016-07-31] MEDS: PANTOPRAZOLE 40 MG TABLET. PO SCH (07:49)
[2016-07-31] MEDS: NIFEDIPINE ER 30 MG TAB.ER.24H PO SCH (07:51)
[2016-07-31] MEDS: METOPROLOL SUCC 24HR ER 50 MG TAB.ER.24H. PO SCH (07:52)
[2016-07-31] MEDS: HYDRALAZINE 25 MG TABLET PO SCH (07:52)
[2016-07-31] MEDS: FOLIC/VIT B COMP W-C (RENAL) TABLET. PO SCH (07:52)
[2016-07-31] MEDS: TORSEMIDE 20 MG TABLET. PO SCH (07:52)
[2016-07-31] MEDS: ALLOPURINOL 100 MG TABLET. PO SCH (07:52)
--- NOTE | 2016-07-31 10:19 | PDOC3 ---
Discharge Summary Visit Information Date of Admission: Jul 30, 2016 Date of Discharge: Jul 31, 2016 Admitting Diagnosis: short of breath Final Diagnosis CHF, acute diastolic failure, ESRD on HD, right arm fistula, noncompliance morbid obesity BMI 58 htn, poor control Dm2, insulin Problems Medical Problems: (1) CHF (congestive heart failure) Status: Acute (2) End stage renal disease Status: Acute (3) HTN (hypertension) Status: Acute (4) Medical non-compliance Status: Acute (5) Shortness of breath Status: Acute Brief Hospital Course Allergies Allergies Coded Allergies Type Severity Reaction Last Updated Verified Penicillins Allergy Intermediate 05/16/15 Yes Iodinated Contrast Media - Oral and Adverse Reaction Intermediate Nausea and Vomiting 05/12/15 Yes prednisone Adverse Reaction Intermediate "Tastes Bad" 05/12/15 Yes Vital Signs Vital Signs Date Time Temp Pulse Resp B/P Pulse Ox O2 Delivery O2 Flow Rate FiO2 07/31/16 08:55 17 95 Nasal Cannula 3.0 07/31/16 07:52 88 154/90 07/31/16 07:00 98.5 98.5 Lab Results Laboratory Tests Test 07/29/16 21:30 07/29/16 21:43 07/30/16 04:15 07/30/16 04:18 White Blood Count 5.8x10^3/uL (4.0-11.0) 4.6x10^3/uL (4.0-11.0) Red Blood Count 3.05x10^6/uL (3.50-5.40) 2.90x10^6/uL (3.50-5.40) Hemoglobin 8.5g/dL (12.0-15.5) 8.0g/dL (12.0-15.5) Hematocrit 26.7% (36.0-47.0) 25.7% (36.0-47.0) Mean Corpuscular Volume 88fL (79-100) 89fL (79-100) Mean Corpuscular Hemoglobin 28pg (25-35) 28pg (25-35) Mean Corpuscular Hemoglobin Concent 32g/dL (31-37) 31g/dL (31-37) Red Cell Distribution Width 20.5% (11.5-14.5) 20.4% (11.5-14.5) Platelet Count 258x10^3/uL (140-400) 233x10^3/uL (140-400) Neutrophils (%) (Auto) 79% (31-73) 75% (31-73) Lymphocytes (%) (Auto) 10% (24-48) 13% (24-48) Monocytes (%) (Auto) 7% (0-9) 7% (0-9) Eosinophils (%) (Auto) 3% (0-3) 4% (0-3) Basophils (%) (Auto) 1% (0-3) 1% (0-3) Neutrophils # (Auto) 4.6x10^3uL (1.8-7.7) 3.5x10^3uL (1.8-7.7) Lymphocytes # (Auto) 0.6x10^3/uL (1.0-4.8) 0.6x10^3/uL (1.0-4.8) Monocytes # (Auto) 0.4x10^3/uL (0.0-1.1) 0.3x10^3/uL (0.0-1.1) Eosinophils # (Auto) 0.2x10^3/uL (0.0-0.7) 0.2x10^3/uL (0.0-0.7) Basophils # (Auto) 0.0x10^3/uL (0.0-0.2) 0.0x10^3/uL (0.0-0.2) Platelet Estimate Adequate (ADEQUATE) Anisocytosis Mod Sodium Level 138mmol/L (136-145) 140mmol/L (136-145) Potassium Level 4.0mmol/L (3.5-5.1) 3.9mmol/L (3.5-5.1) Chloride Level 101mmol/L (98-107) 102mmol/L (98-107) Carbon Dioxide Level 29mmol/L (21-32) 28mmol/L (21-32) Anion Gap 8 (6-14) 20mmol/L (6-14) 10 (6-14) Blood Urea Nitrogen 44mg/dL (7-20) 44mg/dL (7-20) Creatinine 4.2mg/dL (0.6-1.0) 4.2mg/dL (0.6-1.0) Estimated GFR (Cockcroft-Gault) 13.4 13.4 BUN/Creatinine Ratio 10 (6-20) Glucose Level 128mg/dL (70-99) 128mg/dL (70-99) 148mg/dL (70-99) Calcium Level 8.8mg/dL (8.5-10.1) 8.6mg/dL (8.5-10.1) Total Bilirubin 1.3mg/dL (0.2-1.0) Aspartate Amino Transf (AST/SGOT) 32U/L (15-37) Alanine Aminotransferase (ALT/SGPT) 24U/L (14-59) Alkaline Phosphatase 371U/L (46-116) Troponin I Quantitative 0.019ng/mL (0.000-0.055) Total Protein 9.7g/dL (6.4-8.2) Albumin 2.8g/dL (3.4-5.0) Albumin/Globulin Ratio 0.4 (1.0-1.7) Bedside Hemoglobin 9.9g/dL (12-15) Bedside Hematocrit 29% (36-40) Bedside Sodium 141mmol/L (135-145) Bedside Potassium 3.9mmol/L (3.5-5.0) Bedside Chloride 100mmol/L (98-110) Bedside Total CO2 26mmol/L (23-32) Bedside Blood Urea Nitrogen 41mg/dL (8-26) Bedside Creatinine 4.2mg/dL (0.5-1.4) Bedside Ionized Calcium (Trista) 1.08mmol/L (1.13-1.32) Test 07/30/16 08:37 07/30/16 17:44 07/30/16 21:05 07/31/16 04:30 Glucose (Fingerstick) 164mg/dL (70-99) 124mg/dL (70-99) 195mg/dL (70-99) Sodium Level 137mmol/L (136-145) Potassium Level 4.2mmol/L (3.5-5.1) Chloride Level 100mmol/L (98-107) Carbon Dioxide Level 31mmol/L (21-32) Anion Gap 6 (6-14) Blood Urea Nitrogen 29mg/dL (7-20) Creatinine 3.1mg/dL (0.6-1.0) Estimated GFR (Cockcroft-Gault) 19.1 Glucose Level 188mg/dL (70-99) Calcium Level 8.3mg/dL (8.5-10.1) Test 07/31/16 08:26 Glucose (Fingerstick) 218mg/dL (70-99) Laboratory Tests Test 07/30/16 17:44 07/30/16 21:05 07/31/16 04:30 07/31/16 08:26 Glucose (Fingerstick) 124mg/dL (70-99) 195mg/dL (70-99) 218mg/dL (70-99) Sodium Level 137mmol/L (136-145) Potassium Level 4.2mmol/L (3.5-5.1) Chloride Level 100mmol/L (98-107) Carbon Dioxide Level 31mmol/L (21-32) Anion Gap 6 (6-14) Blood Urea Nitrogen 29mg/dL (7-20) Creatinine 3.1mg/dL (0.6-1.0) Estimated GFR (Cockcroft-Gault) 19.1 Glucose Level 188mg/dL (70-99) Calcium Level 8.3mg/dL (8.5-10.1) Brief Hospital Course Ms. Desir is a 51 old admitted for noncompliance medical. missed HD x2, and fluid overload and dyspneic. Admitted, HD done urgently on 07/30. she refused HD on 07/31, and wanted to stay in the hospital over the weekend,. We will discharge to her current care of home health with PT and OT, and she need to go to her outpatient HD which is scheduled for `08/01 Discharge Information Condition at Discharge: Improved Follow Up: Weeks Disposition/Orders: D/C to Home Scheduled Albuterol Sulfate (Proair Hfa Inhaler) 2 PUFF IH PRN Q4-6HRS (Reported) Budesonide/Formoterol Fumarate (Symbicort 160-4.5 Mcg Inhaler) 2 PUFF IH BID ( Reported) Folic Acid/Vitamin B Comp W-C (Nephro-Kajal Tablet) 1 TAB PO DAILY (Reported) Hydralazine Hcl (Hydralazine Hcl) 1 TAB PO BID (Reported) Insulin Aspart (Novolog) 12 UNIT SQ TIDAC (Reported) Insulin Glargine,Hum.rec.anlog (Lantus) 15 UNIT SQ QHS (Reported) Metoprolol Succinate (Toprol Xl) 50 MG PO DAILY (Reported) Nifedipine (Nifedical Xl) 30 MG PO DAILY (Reported) Pantoprazole Sodium (Protonix) 40 MG PO DAILY (Reported) Torsemide (Torsemide) 1 TAB PO DAILY (Reported) Scheduled PRN Tramadol Hcl (Tramadol Hcl) 50 MG PO PRN Q8HRS PRN PRN PAIN (Reported) Miscellaneous Medications Allopurinol (Allopurinol) 100 MG PO (Reported) Cholecalciferol (Vitamin D3) (Vitamin D3) 5,000 UNIT PO (Reported) Patient Instructions Patient Instructions time > 30 min SANJUANA AWAD MD Jul 31, 2016 10:19
--- NOTE | 2016-07-31 10:29 | PDOC ---
Renal-Progress Notes Subjective Notes Notes BREATHING MUCH BETTER BUT STILL HAS SOME SOB History of Present Illness Hx of present illness BETTER Vitals Vitals Vital Signs Date Time Temp Pulse Resp B/P Pulse Ox O2 Delivery O2 Flow Rate FiO2 07/31/16 08:55 17 95 Nasal Cannula 3.0 07/31/16 07:52 88 154/90 07/31/16 07:00 98.5 98.5 Weight Weight [ ] I.O. Intake and Output Intake and Output 07/31/16 07:00 Intake Total 1000 ml Output Total 0 ml Balance 1000 ml Intake Oral 1000 ml Output Urine Total 0 ml # Voids 3 # Bowel Movements 1 Labs Labs Laboratory Tests Test 07/30/16 17:44 07/30/16 21:05 07/31/16 04:30 07/31/16 08:26 Glucose (Fingerstick) 124mg/dL (70-99) 195mg/dL (70-99) 218mg/dL (70-99) Sodium Level 137mmol/L (136-145) Potassium Level 4.2mmol/L (3.5-5.1) Chloride Level 100mmol/L (98-107) Carbon Dioxide Level 31mmol/L (21-32) Anion Gap 6 (6-14) Blood Urea Nitrogen 29mg/dL (7-20) Creatinine 3.1mg/dL (0.6-1.0) Estimated GFR (Cockcroft-Gault) 19.1 Glucose Level 188mg/dL (70-99) Calcium Level 8.3mg/dL (8.5-10.1) Review of Systems Constitutional: yes: alert, oriented, weakness Ears/Nose/Throat: Yes: no symptom reported Eyes: Yes: no symptom reported Pulmonary: Yes dyspnea Cardiovascular: Yes no symptom reported, Yes edema Gastrointestional: Yes: constipation Musculoskeletal: Yes: muscle stiffness Physical Exam General Appearance: no apparent distress Skin: warm Respiratory: decreased breath sounds Heart: S1S2 Abdomen: soft, bowel sounds present Neurology: alert, oriented, follow commands Musculoskeletal: Other Assessment Assessment IMP HYPERVOLEMIA ANEMIA ESRD NON COMPLIANCE PLAN OFFERED HER AN EXTRA HD TX TODAY FOR MORE ULTRAFILTRATION PT REFUSED AND STATES SHE ONLY WANTS HD TOMORROW NOT MUCH ELSE TO OFFER D/W ATTENDING TARYN COLBY MD Jul 31, 2016 10:29
[2016-07-31 11:00] VITALS: BP 146/86
[2016-07-31 15:00] VITALS: BP 123/68
== END 2016-07-31 17:30 | disposition home or self-care (01) | DRG 291 ==
LOC: ER 21:11 → 2 SOUTH 22:12
PROVIDERS: ADMIT Internal Medicine; ATTEND Internal Medicine
PROC: 5A1D00Z (ICD-10-PCS; principal; 2016-07-30)
DX: I50.33 Acute on chronic diastolic (congestive) heart failure (principal); N18.6 End stage renal disease; I13.2 Hypertensive heart and chronic kidney disease with heart failure and with stage 5 chronic kidney disease, or end stage renal disease; Z68.43 Body mass index [BMI] 50.0-59.9, adult; D63.8 Anemia in other chronic diseases classified elsewhere; E11.22 Type 2 diabetes mellitus with diabetic chronic kidney disease; E11.319 Type 2 diabetes mellitus with unspecified diabetic retinopathy without macular edema; E66.01 Morbid (severe) obesity due to excess calories; E78.5 Hyperlipidemia, unspecified; I44.0 Atrioventricular block, first degree; J44.9 Chronic obstructive pulmonary disease, unspecified; J45.909 Unspecified asthma, uncomplicated; K21.9 Gastro-esophageal reflux disease without esophagitis; Z96.651 Presence of right artificial knee joint; Z88.0 Allergy status to penicillin; Z88.8 Allergy status to other drugs, medicaments and biological substances; Z91.041 Radiographic dye allergy status; Z82.49 Family history of ischemic heart disease and other diseases of the circulatory system; Z91.19 Patient's noncompliance with other medical treatment and regimen; Z99.2 Dependence on renal dialysis
CPT/HCPCS: 36415; 70450; 71010; 80047; 80048; 80053; 82947; 84484; 85007; 85027; 93005; 94250; 94640; 94760; 96374; J0881; J1815; J3490; J7620; Q0163; 99285-25

== ENCOUNTER 2017-02-05 14:37 | Emergency (ER) | payer MEDICARE, MEDICAID ==
[~2017-02-05 14:37] MED LIST changes: +CHOL500016 PO; +FOLI0.8T3 PO; +HYDR-2868 PO; +INSU100V8 SQ; +METO-269 PO; +TORS20TA2 PO; +TRAM50TA PO
[2017-02-05 15:38] VITALS: BP 114/64
[2017-02-05] MEDS ORDERED: HYDROcodone/APAP 10/325 1 TAB TABLET PO ONE (16:30)
[2017-02-05] MEDS ORDERED: CLINDAMYCIN HCL 150 MG CAPSULE. PO ONE (16:30)
--- NOTE | 2017-02-05 18:17 | ED.ADGEN ---
Past Medical History Past Medical History: Arthritis, Asthma, CHF, COPD, Diabetes-Type II, GERD, Hypertension, Renal Disease, Renal Failure Additional Past Medical Histor: obesity Past Surgical History: , Knee Replacement, Other Additional Past Surgical Histo: (R) ARM SHUNT, (R) KNEE RPL, EYE Alcohol Use: None Drug Use: None Adult General Chief Complaint Chief Complaint: DENTAL PROBLEM HPI HPI Patient is a 51 year old female long term patient with history of renal failure requiring dialysis, hypertension, COPD who presents with dental pain. Patient reports waking this morning with left lower posterior molar dental pain. Patient denies trismus, dysphonia, dysphagia, drooling and hoarseness. She is not currently on antibiotics. She did not contact a dentist to schedule appointment. Patient is on OxyContin daily, which she states is not controlling her pain. Patient missed her dialysis appointment or earlier this morning due to her pain complaint. Review of Systems Review of Systems Review symptoms as per history of present illness. All other acute symptoms and Current Medications Current Medications Current Medications Medications (Trade) Dose Ordered Sig/Werner Start Time Stop Time Status Last Admin Dose Admin Acetaminophen/ Hydrocodone Bitart (Lortab 10/325) 1 tab 1X ONCE 02/05/17 16:30 02/05/17 16:31 DC 02/05/17 17:03 1 TAB Clindamycin HCl (Cleocin) 300 mg 1X ONCE 02/05/17 16:30 02/05/17 16:31 DC 02/05/17 17:03 300 MG Allergies Allergies Allergies Coded Allergies Type Severity Reaction Last Updated Verified Penicillins Allergy Intermediate 05/16/15 Yes Iodinated Contrast- Oral and IV Dye Adverse Reaction Intermediate Nausea and Vomiting 05/12/15 Yes prednisone Adverse Reaction Intermediate "Tastes Bad" 05/12/15 Yes Physical Exam Physical Exam Constitutional: Well developed, well nourished, no acute distress, non-toxic appearance. [] HENT: Normocephalic, atraumatic, bilateral external ears normal, oropharynx moist, left posterior molar pain, tenderness, no gross soft tissue swelling or abscess. No dysphonia and dysphagia, trismus or drooling. No voice hoarseness Eyes: PERRLA, EOMI, conjunctiva normal, no discharge. [] Neck: Normal range of motion, no tenderness, supple, no stridor. [] Cardiovascular:Heart rate regular rhythm, no murmur [] Lungs & Thorax: Bilateral breath sounds clear to auscultation [] Neurologic: Alert and oriented X 3, normal motor function, normal sensory function, no focal deficits noted. [] Psychologic: Affect normal, judgement normal, mood normal. [] Current Patient Data Vital Signs Vital Signs Date Time Temp Pulse Resp B/P (MAP) Pulse Ox O2 Delivery O2 Flow Rate FiO2 02/05/17 17:03 16 02/05/17 15:38 98.8 74 114/64 (81) 96 Nasal Cannula 3.0 98.8 EKG EKG [] Radiology/Procedures Radiology/Procedures [] Course & Med Decision Making Course & Med Decision Making Pertinent Labs and Imaging studies reviewed. (See chart for details) [Patient's pain addressed. Antibiotics given. Recommend post follow-up with dentist and to reschedule dialysis for tomorrow morning.] Dragon Disclaimer Dragon Disclaimer This electronic medical record was generated, in whole or in part, using a voice recognition dictation system. FAUSTINO FIELD DO Feb 05, 2017 18:17
== END 2017-02-05 18:43 | disposition home or self-care (01) ==
LOC: ER 14:37
DX: K08.89 Other specified disorders of teeth and supporting structures (principal); M19.90 Unspecified osteoarthritis, unspecified site; J44.9 Chronic obstructive pulmonary disease, unspecified; I13.0 Hypertensive heart and chronic kidney disease with heart failure and stage 1 through stage 4 chronic kidney disease, or unspecified chronic kidney disease; E11.22 Type 2 diabetes mellitus with diabetic chronic kidney disease; N18.9 Chronic kidney disease, unspecified; I50.9 Heart failure, unspecified; K21.9 Gastro-esophageal reflux disease without esophagitis; E66.9 Obesity, unspecified; Z88.0 Allergy status to penicillin; Z99.2 Dependence on renal dialysis; Z96.651 Presence of right artificial knee joint; Z79.891 Long term (current) use of opiate analgesic; Z91.041 Radiographic dye allergy status; Z88.8 Allergy status to other drugs, medicaments and biological substances
CPT/HCPCS: 99284